=== PATIENT | female | born 1975 | race Caucasian/White ===

== ENCOUNTER 2016-07-26 13:31 | Emergency (ER) | payer OTHER ==
[2016-07-26 13:40] VITALS: BP 127/75
== END 2016-07-26 15:00 | disposition home or self-care (01) ==
LOC: ED 13:31
DX: L03.312 Cellulitis of back [any part except buttock and flank] (principal); E11.9 Type 2 diabetes mellitus without complications; Z79.4 Long term (current) use of insulin
CPT/HCPCS: J0295

== ENCOUNTER 2016-11-22 01:25 | Emergency (ER) | payer OTHER ==
[2016-11-22 03:57] VITALS: BP 129/83
== END 2016-11-22 03:57 | disposition home or self-care (01) ==
LOC: ED 01:25
DX: S90.852A Superficial foreign body, left foot, initial encounter (principal); E11.40 Type 2 diabetes mellitus with diabetic neuropathy, unspecified; Z79.84 Long term (current) use of oral hypoglycemic drugs; Z79.4 Long term (current) use of insulin; X58.XXXA Exposure to other specified factors, initial encounter; Y93.89 Activity, other specified; Y99.8 Other external cause status; Y92.89 Other specified places as the place of occurrence of the external cause
CPT/HCPCS: Q0092

== ENCOUNTER 2019-05-06 12:25 | Emergency (ER) | payer OTHER ==
[~2019-05-06] VITALS: Ht 180.3 cm; Wt 112.9 kg
[2019-05-06 12:27] VITALS: Ht 180.3 cm; Wt 112.9 kg
[2019-05-06 16:42] VITALS: BP 130/87
== END 2019-05-06 16:42 | disposition home or self-care (01) ==
LOC: ED 12:25
DX: J98.01 Acute bronchospasm (principal); R07.89 Other chest pain; E11.9 Type 2 diabetes mellitus without complications; L40.9 Psoriasis, unspecified; E66.9 Obesity, unspecified; Z68.34 Body mass index [BMI] 34.0-34.9, adult; Z98.890 Other specified postprocedural states
CPT/HCPCS: 82962; 87804; J2930; J7613; J7644